=== PATIENT | male | born 1940 | race Caucasian/White ===

== ENCOUNTER 2018-07-28 16:54 | Inpatient (IN) | payer OTHER ==
[~2018-07-28] VITALS: Ht 175.3 cm; Wt 69.4 kg
--- NOTE | ~2018-07-28 | O ---
[facility] [place] [address] OPERATIVE REPORT Name: JESUS CHRISTIAN Room #: 150-5 [facility] IN M.R.#: [id number] Admission: 07/28/18 Attend Phys: Maikel Hughes MD Discharge: 07/28/18 Date of : 44 Report #: [id number] THIS REPORT FOR: //name// CC: SHAD physician/PCP Maikel Hughes DATE OF SERVICE: 07/28/2018 PREOPERATIVE DIAGNOSIS: Complex laceration of the left hand. POSTOPERATIVE DIAGNOSIS: Complex laceration of left hand including musculature of the thenar eminence. PROCEDURE: I and D of left hand complex laceration with primary closure, total length of the laceration was 14 cm. SURGEON: Maikel Hughes MD ANESTHESIA: General. COMPLICATIONS: None. TOURNIQUET TIME: 6 minutes. CONDITION UPON LEAVING THE OPERATING ROOM: Stable. INDICATIONS FOR PROCEDURE: The patient is a 77-year-old gentleman who was cutting a tree with a skill saw today and sustained a laceration to his left hand of his thenar eminence as well as the dorsum of his left thumb. This was felt to be too complex for primary closure by the Emergency Room physician and so we elected to bring him to the Operating Room for irrigation and debridement, primary closure. DESCRIPTION OF PROCEDURE: Risks, benefits, alternatives, complications were discussed in detail with the patient including but not limited to risk of anesthesia, risk of damage to nerves, arteries, blood vessels, risk for infection and the very real need for likely repeat exploration by hand surgeon. Left upper extremity was appropriately marked in the preoperative holding area. He was brought to the Operating Room and placed in supine position on operating room table. General endotracheal anesthesia was induced without complication. Tourniquet was placed on the left upper arm. Left upper extremity was prepped and draped in normal sterile fashion. Timeout was performed properly identifying the patient and procedure as well as the instrumentation. All in the Operating Room were in agreement. Left upper extremity was exsanguinated, tourniquet was inflated. Tourniquet time was 6 minutes. The wound and laceration were then explored. There was a V-type laceration extending from the [facility] [address] [address] OPERATIVE REPORT Name: JESUS CHRISTIAN Room #: 150-5 DIS IN M.R.#: [id number] Admission: 07/28/18 Attend Phys: Maikel Hughes MD Discharge: 07/28/18 Date of : 44 Report #: [id number] dorsum of the thumb around to the thenar eminence and then extending into the first webspace. This did go deep into the thenar musculature, which was transected. In addition, there was a separate laceration over the MCP joint of the thumb. There was a bulge in the dorsal aspect of the head of the first metacarpal ____ was removed. This was only about 1.5 x 1 cm in length. The laceration did go deep into the MCP joint of the thumb. The musculature and joint were then thoroughly irrigated with normal saline. The skin was cleaned up of macerated edges and closed with 3-0 nylon interrupted suture. The total length of the wound after closure was 14 cm. Adaptic, 4 x 4, Webril, Thierry wrap were applied as dressings. The patient tolerated this procedure well and went to Recovery Room under care of anesthesia postoperatively. By: [id number] Maikel Hughes MD /nt
[2018-07-28 16:56] VITALS: BP 165/81
[2018-07-28 18:44] LABS: ABSOLUTE NEUTROPHILS 8.9 thou/uL (1.4-8.2); BASOPHILS 0.4 % (0.0-2.0); EOSINOPHILS 0.8 % (0.0-3.0); HEMATOCRIT 43.2 % (42.0-52.0); HEMOGLOBIN 14.4 gm/dL (14.0-18.0); LYMPHOCYTES 8.4 % (24.0-44.0); MCH 29.5 pg (26.0-34.0); MCHC 33.2 g/dL (28.0-37.0); MCV 88.8 fL (80.0-100.0); MONOCYTES 5.8 % (1.0-8.0); PLATELET COUNT 212 thou/uL (150-400); POLYS 84.6 % (36.0-66.0); RBC 4.87 mil/uL (4.50-6.00); RDW 13.8 % (10.5-14.5); WBC 10.5 thou/uL (4.0-11.0)
[2018-07-28 18:54] LABS: PROTIME 10.7 Seconds (9.3-11.4)
[2018-07-28 18:58] LABS: CALCIUM 9.1 mg/dL (8.5-10.1); CREATININE 1.1 mg/dL (0.7-1.3); POTASSIUM 4.1 mmol/L (3.5-5.1)
[2018-07-28 19:22] VITALS: BP 146/69
[2018-07-28] MEDS ORDERED: NORCO 5-325 TA1 EACH PO (20:14)
[2018-07-28] MEDS ORDERED: KEFLEX500 M1 PO (20:14)
--- NOTE | 2018-07-28 20:20 | H ---
[facility] [place] [address] HISTORY AND PHYSICAL Name: JESUS CHRISTIAN Room #: 150-5 ADM IN M.R.#: [id number] Admission: 07/28/18 Attend Phys: Maikel Hughes MD Discharge: Date of : 44 Report #: [id number] THIS REPORT FOR: //name// CC: SHAD physician/PCP Maikel Hughes DATE OF SERVICE: 07/28/2018 CHIEF COMPLAINT: Left hand laceration. HISTORY OF PRESENT ILLNESS: The patient is a 77-year-old gentleman who came to the Emergency Room with laceration of his left hand. He cut his hand while trying to cut down a fallen tree limb with a [place]. He was evaluated by the Emergency Room physician, Dr. Coronel, who evidently did not feel comfortable with bedside I and D and wound closure. PAST MEDICAL HISTORY: None. ALLERGIES: None. SOCIAL HISTORY: Does not smoke, drink or use illicit drugs. Lives at home. He is right hand dominant. PHYSICAL EXAMINATION: GENERAL: Well-developed, well-nourished male, in no acute distress. He is alert and oriented x 3, pleasant, cooperative with exam. EXTREMITIES: Examination of the left hand shows him to have a complex laceration from the dorsum of the metacarpophalangeal joint of the thumb extending around into the thenar eminence. This is V-shaped. At the base of the proximal phalanx, there is exposed bone in the wound bed. There is no gross dirt or foreign body noted. He does have decreased sensation on the radial aspect of his thumb in comparison to the ulnar aspect. He has a 2+ radial pulse and brisk capillary refill of the thumb. X-RAY EXAMINATION: AP and lateral of the left hand show him to have what appears to be an avulsion type fracture of either base of the proximal phalanx of the thumb or the head of the first metacarpal. No other fractures or foreign bodies are noted. ASSESSMENT: Complex left hand laceration with possible digital nerve laceration to the radial digital nerve of the thumb. Avulsion injury to either the base of the proximal phalanx or the metacarpal head of the thumb. PLAN: Discussion with the patient regarding options was made. Given the complexity of this laceration, we are going to take him to the operating room for I and D and primary wound closure. He likely will need follow up with my [address] [address] HISTORY AND PHYSICAL Name: JESUS CHRISTIAN Room #: 150-5 ADM IN ..#: [id number] Admission: 07/28/18 Attend Phys: Maikel Hughes MD Discharge: Date of : 44 Report #: [id number] hand surgeon, Dr. Valverde for repeat assessment and possible delayed exploration of the wounds for possible digital nerve repair if indicated. He has been given 1 gram of Ancef and but refused tetanus in the Emergency Room. <ELECTRONICALLY SIGNED> By: Maikel Hughes MD 07/28/182019 [id number] [id number] Maikel Hughes MD /nt
[2018-07-28 20:33] VITALS: BP 146/69
== END 2018-07-28 21:49 | disposition home or self-care (01) | DRG 983 ==
LOC: ER 16:54 → TBA 19:22
PROVIDERS: Student in an Organized Health Care Education/Training Program; ADMIT Orthopaedic Surgery
PROC: 0HQ1XZZ Repair Face Skin, External Approach (ICD-10-PCS; principal; 2018-07-28)
PROC: 0RQX0ZZ Repair Left Finger Phalangeal Joint, Open Approach (ICD-10-PCS; principal; 2018-07-28)
DX: S61.412A Laceration without foreign body of left hand, initial encounter (principal); S01.511A Laceration without foreign body of lip, initial encounter; W14.XXXA Fall from tree, initial encounter; Y93.89 Activity, other specified; Y92.89 Other specified places as the place of occurrence of the external cause; Y99.8 Other external cause status; Z79.1 Long term (current) use of non-steroidal anti-inflammatories (NSAID); Z79.899 Other long term (current) drug therapy; Z28.21 Immunization not carried out because of patient refusal
CPT/HCPCS: 50010; 50101; 50386; 56527; 57091; 57103; 62110; 62900; 70005